=== PATIENT | female | born 1980 | race Hispanic/Latino ===

== ENCOUNTER 2017-01-13 07:40 | Emergency (ER) | payer OTHER ==
[2017-01-13 07:41] VITALS: BMI 25.4
[2017-01-13] MEDS ORDERED: Sodium Chloride 0.9% 500 ML IV ONE (07:58)
[2017-01-13 07:59] VITALS: BP 132/78; PULSE 78; RESP 18; TEMP 98.7; O2SAT 98
--- NOTE | 2017-01-13 08:02 | ED PDOC ---
Arrival/HPI - General Chief Complaint: Female Genitourinary Time Seen by Provider: 01/13/17 07:51 Historian: Patient - History of Present Illness Narrative History of Present Illness (Text): 01/13/17 08:00 Leyla Grant is a 36 year old female, whose past medical history includes a gastric bypass surgery, who presents to the emergency department complaining of left-sided kidney pain and diffuse lower abdominal pain for one week. Patient notes that she currently has a UTI for a week. Patient states that had consulted PMD and had [place] [facility] [place] woke up this morning and began to feel current symptoms. Patient says she cannot walk due to lower abdominal pain. Patient states that she has never had kidney stones before but her mother has a history of it. Patient denies any fevers, nausea, vomiting, diarrhea, or any other complaints at this time. Time/Duration: 1 week Symptom Onset: Gradual Symptom Course: Worsening Severity Level: Mild Activities at Onset: Rest Context: Home Associated Symptoms (Text): 01/13/17 08:52 One-week history of urinary symptoms including frequency or urgency and dysuria. She has had some suprapubic discomfort. Early this morning she developed acute onset of severe left flank pain with radiation into her left groin. No fever or chills. Some nausea but no vomiting or diarrhea. No injury or trauma. No history of stones. Past Medical History - Provider Review Nursing Documentation Reviewed: Yes - Infectious Disease Hx of Infectious Diseases: MRSA - Tetanus Immunization Tetanus Immunization: Unknown - Past Medical History Past Medical History: No Previous - Cardiac Hx Pacemaker: No - Pulmonary Hx Respiratory Disorders: No - Neurological Hx Paralysis: No - HEENT Hx HEENT Disorder: No - Renal Hx Renal Disorder: No - Endocrine/Metabolic Hx Endocrine Disorders: No - Hematological/Oncological Hx Blood Transfusions: No Hx Blood Transfusion Reaction: No - Integumentary Hx Dermatological Disorder: No - Musculoskeletal/Rheumatological Hx Musculoskeletal Disorders: No - Gastrointestinal Hx Gastrointestinal Disorders: No - Genitourinary/Gynecological Hx Genitourinary Disorders: No - Psychiatric Hx Emotional Abuse: No Hx Physical Abuse: No Hx Substance Use: No - Past Surgical History Past Surgical History: No Previous - Surgical History Hx Cholecystectomy: Yes Hx Gastric Bypass Surgery: Yes Hx Tonsillectomy: Yes Other/Comment: hernia - Anesthesia Hx Anesthesia Reactions: No Hx Malignant Hyperthermia: No - Suicidal Assessment Feels Threatened In Home Enviroment: No Family/Social History - Physician Review Nursing Documentation Reviewed: Yes Family/Social History: Unknown Family HX, Other (Kidney stones) Smoking Status: Never Smoked Hx Alcohol Use: No Hx Substance Use: No Hx Substance Use Treatment: No Allergies/Home Meds Allergies/Adverse Reactions: Allergies No Known Allergies Allergy (Verified 01/13/17 07:51) Review of Systems - Physician Review All systems were reviewed & negative as marked: Yes - Review of Systems Constitutional: absent: Fevers, Night Sweats Eyes: absent: Vision Changes ENT: absent: Hearing Changes Respiratory: absent: SOB Cardiovascular: absent: Chest Pain Gastrointestinal: Abdominal Pain. absent: Diarrhea, Nausea, Vomiting Genitourinary Female: Dysuria, Frequency. absent: Hematuria, Urine Output Changes Musculoskeletal: Back Pain. absent: Neck Pain Skin: absent: Rash Neurological: absent: Headache, Dizziness, Focal Weakness Endocrine: absent: Polyuria Hemo/Lymphatic: absent: Easy Bleeding Psychiatric: absent: Depression Physical Exam Vital Signs Reviewed: Yes Vital Signs Temp Pulse Resp BP Pulse Ox 01/13/17 07:41 98.7 F 78 18 132/78 98 Temperature: Afebrile Blood Pressure: Normal Pulse: Regular Respiratory Rate: Normal Appearance: Positive for: Well-Appearing, Non-Toxic, Uncomfortable Pain Distress: Mild Mental Status: Positive for: Alert and Oriented X 3 - Systems Exam Head: Present: Atraumatic, Normocephalic Pupils: Present: PERRL Extroacular Muscles: Present: EOMI Conjunctiva: Present: Normal Mouth: Present: Moist Mucous Membranes Pharnyx: No: ERYTHEMA, EXUDATE, TONSILS ENLARGED Neck: Present: Normal Range of Motion Respiratory/Chest: Present: Clear to Auscultation, Good Air Exchange. No: Respiratory Distress, Accessory Muscle Use Cardiovascular: Present: Regular Rate and Rhythm, Normal S1, S2. No: Murmurs Abdomen: Present: Normal Bowel Sounds. No: Tenderness, Distention, Peritoneal Signs, Rebound, Guarding Back: Present: CVA Tenderness (mild left CVA Tenderness). No: Midline Tenderness, Paraspinal Tenderness Upper Extremity: Present: Normal Inspection. No: Cyanosis, Edema Lower Extremity: Present: Normal Inspection. No: Edema Neurological: Present: GCS=15, CN II-XII Intact, Speech Normal, Motor Func Grossly Intact, Gait Normal Skin: Present: Warm, Dry, Normal Color. No: Rashes Psychiatric: Present: Alert, Oriented x 3, Normal Insight, Normal Concentration Medical Decision Making ED Course and Treatment: 01/13/17 08:00 Impression: 36 year old female complaining of left sided kidney pain and diffuse lower abdominal pain for one week. Plan: -- Abdomen and Pelvis CT w/o PO contrast -- Urinalysis, Urine Culture -- Labs -- Toradol, IV Fluids -- Reassess and disposition Prior Visits: Notes and results from previous visits were reviewed. Patient last seen in the ED on 09/08/15 for left lower quadrant pain for one day. Patient was discharged home. Progress Notes: 01/13/17 08:53 Symptoms markedly improved post Toradol and IV fluids - Lab Interpretations Lab Results: 01/13/17 08:25 01/13/17 08:51 Lab Results 01/13/17 08:51: Sodium 139, Potassium 3.6, Chloride 106, Carbon Dioxide 25, Anion Gap 12, BUN 3 L, Creatinine 0.6, Est GFR ( Amer) > 60, Est GFR (Non -Af Amer) > 60, Random Glucose 78, Calcium 8.5, Total Bilirubin 0.6, AST 19, ALT 31, Alkaline Phosphatase 56, Total Protein 7.0, Albumin 3.7, Globulin 3.2, Albumin/Globulin Ratio 1.2, Lipase 96 01/13/17 08:25: WBC 4.3 L, RBC 4.74, Hgb 12.4, Hct 38.6, MCV 81.4, MCH 26.2, MCHC 32.1, RDW 13.5, Plt Count 257, MPV 10.9, Gran % 63.8, Lymph % (Auto) 27.4, Trego % (Auto) 7.4 H, Eos % (Auto) 0.9 L, Baso % (Auto) 0.5, Gran # 2.74, Lymph # 1.2, Trego # 0.3, Eos # 0.0, Baso # 0.02 01/13/17 08:08: Urine Color Yellow, Urine Appearance Sl cloudy, Urine pH 6.0, Ur Specific Advance 1.020, Urine Protein Trace H, Urine Glucose (UA) Negative, Urine Ketones Negative, Urine Blood Large H, Urine Nitrate Negative, Urine Bilirubin Negative, Urine Urobilinogen 0.2, Ur Leukocyte Esterase Large H, Urine RBC Tntc, Urine WBC Tntc, Ur Epithelial Cells 3 - 4, Urine Bacteria Small , Urine HCG, Qual Negative - RAD Interpretation Radiology Orders: 01/13/17 07:59 ABD & PELVIS W/O PO OR IV CONT [CT] Stat CT scan of the abdomen and pelvis is read by the radiologist shows no acute findings Toggle Press Operator: Radiologist - Medication Orders Current Medication Orders: Discontinued Medications Sodium Chloride (Sodium Chloride 0.9%) 500 mls @ 500 mls/hr IV ONCE ONE Stop: 01/13/17 08:57 Last Admin: 01/13/17 08:21 Dose: 500 MLS/HR eMAR Start Stop Document 01/13/17 08:21 JOL (Rec: 01/13/17 08:21 JOL [id number]) Intravenous Solution Start Date 01/13/17 Start Time 08:21 End Date 01/13/17 End time 09:21 Total Infusion Time 60 Ciprofloxacin (Cipro 400mg/200ml Dsw) 200 mls @ 133.333 mls/hr IV STAT STA PRN Reason: Protocol Stop: 01/13/17 10:36 Last Admin: 01/13/17 09:31 Dose: 133.333 MLS/HR eMAR Start Stop Document 01/13/17 09:31 JOL (Rec: 01/13/17 09:31 JOL [id number]) Intravenous Solution Start Date 01/13/17 Start Time 09:31 End Date 01/13/17 End time 11:01 Total Infusion Time 90 Ketorolac Tromethamine (Toradol) 30 mg IVP ONCE ONE Stop: 01/13/17 07:59 Last Admin: 01/13/17 08:21 Dose: 30 MG IVP Administration Document 01/13/17 08:21 JOL (Rec: 01/13/17 08:21 JOL [id number]) Charges for Administration # of IVP Administrations 1 - Scribe Statement The provider has reviewed the documentation as recorded by the Scribe Snoia Tellez Provider Scribe Attestation: All medical record entries made by the Scribe were at my direction and personally dictated by me. I have reviewed the chart and agree that the record accurately reflects my personal performance of the history, physical exam, medical decision making, and the department course for this patient. I have also personally directed, reviewed, and agree with the discharge instructions and disposition. Disposition/Present on Arrival - Present on Arrival Any Indicators Present on Arrival: No History of DVT/PE: No History of Uncontrolled Diabetes: No Urinary Catheter: No History of Decub. Ulcer: No History Surgical Site Infection Following: None - Disposition Have Diagnosis and Disposition been Completed?: Yes Diagnosis: Pyelonephritis Disposition: HOME/ ROUTINE Disposition Time: 09:20 Patient Plan: Discharge Condition: IMPROVED Discharge Instructions (ExitCare): Urinary Tract Infection in Women (ED), Acute Pyelonephritis (ED) Additional Instructions: Tylenol or Advil as directed on bottle as needed. Symptomatic treatment. Follow- up with PMD. Follow up in ER as needed. Prescriptions: Ciprofloxacin [Cipro] 500 mg PO BID #14 tab Nitrofurantoin Macrocrystals [Macrobid] 100 mg PO BID #14 cap Phenazopyridine HCl [Pyridium] 200 mg PO Q8 #9 tablet Forms: WORK NOTE
[2017-01-13 08:21] LABS: URINE BILIRUBIN NEGATIVE (NEGATIVE); URINE BLOOD LARGE (NEGATIVE); URINE GLUCOSE (UA) NEGATIVE (NEGATIVE); URINE KETONE NEGATIVE (NEGATIVE); URINE LEUKOCYTE ESTERASE LARGE Leu/uL (NEGATIVE); URINE PROTEIN TRACE mg/dL (<30 mg/dL); URINE UROBILINOGEN 0.2 E.U./dL (<1 E.U./dL)
[2017-01-13 08:24] LABS: URINE APPEARANCE SL CLOUDY (CLEAR); URINE COLOR YELLOW (YELLOW)
[2017-01-13 08:25] LABS: ADD MANUAL DIFF? NO
[2017-01-13 08:31] LABS: BASO # 0.02 K/mm3 (0.0-2.0); BASO % 0.5 % (0.0-3.0); EOS % 0.9 % (1.5-5.0); GRAN # 2.74 (1.4-6.5); GRAN % 63.8 % (50.0-68.0); HEMATOCRIT 38.6 % (36.0-48.0); LYMPH # 1.2 (1.2-3.4); LYMPH % 27.4 % (22.0-35.0); MEAN CELL VOLUME 81.4 fL (80.0-105.0); MEAN CORPUSCULAR HEMOGLOBIN 26.2 pg (25.0-35.0); MEAN CORPUSCULAR HGB CONC 32.1 g/dl (31.0-37.0); MEAN PLATELET VOLUME 10.9 fl (7.0-11.0); MONO # 0.3 (0.1-0.6); MONO % 7.4 % (1.0-6.0); PLATELET COUNT 257 10^3/uL (120.0-450.0); RED CELL DISTRIBUTION WIDTH 13.5 % (11.5-14.5); WHITE BLOOD COUNT 4.3 10^3/ul (4.5-11.0)
[2017-01-13 08:37] LABS: URINE BACTERIA SMALL (NEG); URINE RBC TNTC /hpf (0-2); URINE WBC TNTC /hpf (0-6)
--- NOTE | 2017-01-13 09:05 | CT ---
PROCEDURE: CT Abdomen and Pelvis without intravenous contrast HISTORY: left stone run COMPARISON: 09/07/2015 TECHNIQUE: Without contrast. Contrast Dose: Radiation dose: Total exam DLP = 373 mGy-cm. This CT exam was performed using one or more of the following dose reduction techniques: Automated exposure control, adjustment of the mA and/or kV according to patient size, and/or use of iterative reconstruction technique. FINDINGS: LOWER THORAX: Suture lines are seen in the stomach. LIVER: Unremarkable. No gross lesion or ductal dilatation. GALLBLADDER AND BILE DUCTS: Gallbladder removed PANCREAS: Unremarkable. No gross lesion or ductal dilatation. SPLEEN: Unremarkable. ADRENALS: Unremarkable. No mass. KIDNEYS AND URETERS: Unremarkable. No hydronephrosis. No solid mass. VASCULATURE: Unremarkable. No aortic aneurysm. BOWEL: Unremarkable. No obstruction. No gross mural thickening. APPENDIX: Unremarkable. Normal appendix. PERITONEUM: Unremarkable. No free fluid. No free air. LYMPH NODES: Unremarkable. No enlarged lymph nodes. BLADDER: Unremarkable. REPRODUCTIVE: There are some calcifications on the inferior surface of the uterus which are unchanged in appearance. These do not represent ureteral or bladder stones. BONES: No acute fracture. OTHER FINDINGS: None. IMPRESSION: No evidence of renal or ureteral stones No acute intra-abdominal findings
[2017-01-13] MEDS ORDERED: Ciprofloxacin 400mg/200ml D5W 200 ML IV STA (09:07)
[2017-01-13 09:08] LABS: ALB/GLOB RATIO 1.2 (1.1-1.8); ALKALINE PHOSPHATASE 56 U/L (38-133); ALT/SGPT 31 U/L (7-56); AST/SGOT 19 U/L (15-39); BILIRUBIN,TOTAL 0.6 mg/dL (0.2-1.3); BLOOD UREA NITROGEN 3 mg/dL (7-21); CALCIUM 8.5 mg/dL (8.4-10.5); CARBON DIOXIDE 25 mmol/L (21-33); CHLORIDE 106 mmol/L (98-107); GFR AFRICAN-AMERICAN > 60; GLUCOSE,RANDOM 78 mg/dL (70-110); LIPASE 96 U/L (23-300); POTASSIUM 3.6 mmol/L (3.6-5.0); SODIUM 139 mmol/L (132-148)
== END 2017-01-13 10:44 | disposition home or self-care (01) ==
LOC: ED 07:40
DX: N10 Acute pyelonephritis (principal)
CPT/HCPCS: 74176; 80053; 81001; 83690; 84703; 85025; 87086; 87181; 96365; 96367; 96375; 99283; J0744; J1885; J7040

== ENCOUNTER 2017-11-29 01:54 | Emergency (ER) | payer OTHER ==
[2017-11-29 01:55] VITALS: BMI 27.2
[2017-11-29 02:02] VITALS: BP 124/72; PULSE 76; RESP 18; TEMP 97.9; O2SAT 99
[2017-11-29] MEDS ORDERED: Amoxicillin-Clav 875-125 mg Tab PO STA (02:05)
--- NOTE | 2017-11-29 02:06 | ED PDOC ---
Arrival/HPI - General Chief Complaint: Bite Time Seen by Provider: 11/29/17 02:03 Historian: Patient - History of Present Illness Narrative History of Present Illness (Text): 11/29/17 02:05 Leyla Grant is a 37 year old female who presents to the Emergency department status post dog bite to right hand yesterday morning. Patient states while holding her dog at the dog park yesterday morning when another dog bit her on the right hand while playing. As per patient, the dog was up to date with its vaccinations. Patient states she cleansed the area with hydrogen peroxide, anti-bacterial soap, and water. Patient denies any discharge, erythema , weakness/numbness/tingling in the extremity, other trauma/injury, or any other complaints. Symptom Onset: Sudden Symptom Course: Improving Activities at Onset: Light Context: Other (Dog park) Past Medical History - Provider Review Nursing Documentation Reviewed: Yes - Infectious Disease Hx of Infectious Diseases: None - Tetanus Immunization Tetanus Immunization: Unknown - Past Medical History Past Medical History: No Previous - Cardiac Hx Cardiac Disorders: No Hx Pacemaker: No - Pulmonary Hx Respiratory Disorders: No - Neurological Hx Paralysis: No - HEENT Hx HEENT Disorder: No - Renal Hx Renal Disorder: No - Endocrine/Metabolic Hx Endocrine Disorders: No - Hematological/Oncological Hx Blood Transfusions: No Hx Blood Transfusion Reaction: No - Integumentary Hx Dermatological Disorder: No - Musculoskeletal/Rheumatological Hx Musculoskeletal Disorders: No - Gastrointestinal Hx Gastrointestinal Disorders: No - Genitourinary/Gynecological Hx Genitourinary Disorders: No - Psychiatric Hx Emotional Abuse: No Hx Physical Abuse: No Hx Substance Use: No - Past Surgical History Past Surgical History: No Previous - Surgical History Hx Cholecystectomy: Yes Hx Gastric Bypass Surgery: Yes Hx Tonsillectomy: Yes Other/Comment: hernia - Anesthesia Hx Anesthesia Reactions: No Hx Malignant Hyperthermia: No - Suicidal Assessment Feels Threatened In Home Enviroment: No Family/Social History - Physician Review Nursing Documentation Reviewed: Yes Family/Social History: Unknown Family HX Smoking Status: Never Smoked Hx Alcohol Use: No Hx Substance Use: No Hx Substance Use Treatment: No Allergies/Home Meds Allergies/Adverse Reactions: Allergies No Known Allergies Allergy (Verified 01/13/17 07:51) Home Medications: Home Meds Medication Instructions Recorded Confirmed Cholecalciferol [Vitamin D 1000 IU] 2,000 units PO DAILY 01/24/17 11/29/17 Review of Systems - Physician Review All systems were reviewed & negative as marked: Yes - Review of Systems Constitutional: Normal. absent: Fevers Eyes: Normal ENT: Normal Respiratory: Normal Cardiovascular: Normal Gastrointestinal: Normal Genitourinary Female: Normal Musculoskeletal: Normal Skin: Other (+dog bite wound). absent: Cellulitis Neurological: Normal Endocrine: Normal Hemo/Lymphatic: Normal Psychiatric: Normal Physical Exam Vital Signs Reviewed: Yes Vital Signs Temp Pulse Resp BP Pulse Ox 11/29/17 02:00 97.9 F 76 18 124/72 99 Temperature: Afebrile Blood Pressure: Normal Pulse: Regular Respiratory Rate: Normal Appearance: Positive for: Well-Appearing, Non-Toxic, Comfortable Pain Distress: None Mental Status: Positive for: Alert and Oriented X 3 - Systems Exam Head: Present: Atraumatic, Normocephalic Pupils: Present: PERRL Extroacular Muscles: Present: EOMI Conjunctiva: Present: Normal Mouth: Present: Moist Mucous Membranes Upper Extremity: Present: Normal ROM, NORMAL PULSES, Neurovascularly Intact, Capillary Refill < 2s, Other (Abrasions to right hand, pinpoint puncture to lateral aspect of right hand, no bleeding/discharged noted). No: Cyanosis, Edema, Tenderness, Swelling, Erythema, Temperature Abnormalties, Deformity Neurological: Present: GCS=15, CN II-XII Intact, Speech Normal Skin: Present: Warm, Dry, Normal Color. No: Rashes Psychiatric: Present: Alert, Oriented x 3, Normal Insight, Normal Concentration Medical Decision Making ED Course and Treatment: 11/29/17 02:05 Impression: 37 year old female presents s/p dog bite to right hand yesterday. Differential Diagnosis included but are not limited to: dog bite Plan: -- Tetanus -- Augmentin -- Reassess and disposition Progress Notes: - Medication Orders Current Medication Orders: Discontinued Medications Amoxicillin/Clavulanate Potassium (Augmentin 875 Mg-125 Mg Tab) 1 tab PO ONCE STA PRN Reason: Protocol Stop: 11/29/17 02:06 Last Admin: 11/29/17 02:34 Dose: 1 tab Tetanus/Reduced Diphtheria/Acell Pertussis (Boostrix Vaccine Inj) 0.5 ml IM .ONCE ONE Stop: 11/29/17 02:08 Last Admin: 11/29/17 02:32 Dose: 0.5 ml MAR Immunization Data Document 11/29/17 02:32 TOOTIE (Rec: 11/29/17 02:33 [facility] [place] [id number]) Immunization Data Vaccine Information Sheet Given Yes Immunization Registry Document 11/29/17 02:32 TOOTIE (Rec: 11/29/17 02:33 [facility] [place] [id number]) Immunization Registry Consent Date 11/02/17 - Scribe Statement The provider has reviewed the documentation as recorded by the Chatoibnell Amaya All medical record entries made by the Chatoibnell were at my direction and personally dictated by me. I have reviewed the chart and agree that the record accurately reflects my personal performance of the history, physical exam, medical decision making, and the department course for this patient. I have also personally directed, reviewed, and agree with the discharge instructions and disposition. Disposition/Present on Arrival - Present on Arrival Any Indicators Present on Arrival: No History of DVT/PE: No History of Uncontrolled Diabetes: No Urinary Catheter: No History of Decub. Ulcer: No History Surgical Site Infection Following: None - Disposition Have Diagnosis and Disposition been Completed?: Yes Diagnosis: Dog bite, Dog bite of hand Disposition: HOME/ ROUTINE Disposition Time: 02:08 Patient Plan: Discharge Condition: GOOD Discharge Instructions (ExitCare): Animal Bites (DC) Additional Instructions: Take meds as prescribed/follow up with your doctor this week Forms: [employer] (Honduran)
[2017-11-29] MEDS ORDERED: TDAP Vaccine 0.5 mL Syr IM ONE (02:07)
== END 2017-11-29 02:35 | disposition home or self-care (01) ==
LOC: ED 01:54
DX: S61.451A Open bite of right hand, initial encounter (principal); W54.0XXA Bitten by dog, initial encounter; Y92.830 Public park as the place of occurrence of the external cause; Z23 Encounter for immunization